=== PATIENT | female | born 1985 | race Two or more races ===

== ENCOUNTER → 2017-02-05 | Outpatient (CLI) | payer BC ==
[2017-02-05 11:24] LABS: BASO % 0.5 % (0.0-1.0); EOS # 0.1 K/mm3 (0.0-0.50); EOS % 0.6 % (0.0-3.0); LARGE UNSTAINED CELL # 0.1 K/mm3 (0.0-0.4); LARGE UNSTAINED CELL % 1.3 % (0.0-4.0); LYMPH # 1.9 K/mm3 (1.5-4.5); LYMPH % 17.9 % (24.0-44.0); MEAN CORPUSCULAR HEMOGLOBIN 30.5 pg (27.0-33.0); MEAN CORPUSCULAR HGB CONC 32.8 g/dl (32.0-36.5); MEAN CORPUSCULAR VOLUME 92.9 fl (80.0-96.0); MONO # 0.5 K/mm3 (0.0-0.8); MONO % 5.4 % (0.0-5.0); NEUTROPHILS # 7.3 K/mm3 (1.8-7.7); NEUTROPHILS % 74.2 % (36.0-66.0); PLATELET COUNT, AUTOMATED 311 k/mm3 (150-450); RED CELL DISTRIBUTION WIDTH 12.2 % (11.5-14.5); WHITE BLOOD COUNT 9.9 K/mm3 (4.0-10.0)
[2017-02-05 12:14] LABS: HBsAg Prenatal NEGATIVE (NEGATIVE)
== END ==
LOC: M LAB 10:41
PROVIDERS: ATTEND Advanced Practice Midwife
DX: Z34.81 Encounter for supervision of other normal pregnancy, first trimester (principal)

== ENCOUNTER → 2017-05-07 | Outpatient (CLI) | payer BC ==
--- NOTE | 2017-05-07 12:13 | REP ---
OB ULTRASOUND: Real-time sonographic evaluation of the gravid uterus is performed utilizing transabdominal technique. There is a single living intrauterine gestation with an estimated gestational age 20 weeks 0 days based on LMP with EDC 09/24/2017. Today's measurements indicate appropriate growth. Biometry and Growth: BPD 49 mm = 20 weeks 6 days, 74th percentile HC 183 mm = 20 weeks 5 days, 71st percentile AC 158 mm = 21 weeks 0 days, 70th percentile FL 34 mm = 20 weeks 5 days, 67th percentile HC/AC ratio 1.16 within normal range. Estimated weight 379 grams, 77th percentile. SEEN/GROSSLY UNREMARKABLE Lateral ventricles Yes Posterior fossa Yes Upper lip Yes Four-chamber heart Yes LVOT No RVOT No Stomach Yes Cord insertion Yes Three vessel cord Yes Kidneys Yes Bladder Yes Spine Yes Cervical length: Closed and measures 3.1 cm in length. heart rate: 162 beats per minute. position: Vertex. Placenta: Posterior and grade 0 with no previa or abruption. Amniotic fluid: Within normal limits. Signed by Jose Diez MD 05/07/2017 12:54 P
== END ==
LOC: M RAD 10:19
PROVIDERS: ATTEND Specialist
DX: Z34.82 Encounter for supervision of other normal pregnancy, second trimester (principal)

== ENCOUNTER → 2017-06-18 | Outpatient (CLI) | payer BC ==
[2017-06-18 13:30] LABS: MEAN CORPUSCULAR HEMOGLOBIN 30.7 pg (27.0-33.0); MEAN CORPUSCULAR HGB CONC 32.8 g/dl (32.0-36.5); MEAN CORPUSCULAR VOLUME 93.4 fl (80.0-96.0); RED CELL DISTRIBUTION WIDTH 12.8 % (11.5-14.5); WHITE BLOOD COUNT 11.8 10^3/uL (4.0-10.0)
== END ==
LOC: M LAB 11:39
PROVIDERS: ATTEND Obstetrics & Gynecology
DX: Z34.82 Encounter for supervision of other normal pregnancy, second trimester (principal)

== ENCOUNTER → 2017-07-02 | Outpatient (CLI) | payer BC ==
--- NOTE | 2017-07-02 09:29 | REP ---
Obstetric sonography: History: Supervision of for anatomy. Findings: Scanning through the gravid uterus demonstrates a viable single intrauterine gestation in a cephalic lie. motion is observed and heart rate is recorded at 163 beats per minute. A posterior grade 0 placenta is seen without evidence of previa or abruption. Amniotic fluid is subjectively normal. Closed cervical length is 4.3 cm, viewed transabdominally. No extrauterine abnormalities observed. There has been greater than expected interval growth. No anomaly is seen. The following anatomic structures are identified and felt to be sonographically unremarkable: cranium, choroid plexus, cavum, cerebellum and posterior fossa, face and profile, lungs, four-chamber heart with left and right ventricular outflow tract views, diaphragm, left-sided stomach, abdominal wall cord insertion, three-vessel umbilical cord, kidneys and bladder, spine, upper and lower extremities. Biometry chart: BPD 7.6 cm = 30 weeks 3 days Head circumference 27.9 cm = 30 weeks 4 days Abdominal circumference 26.1 cm = 30 weeks 2 days Femur length 5.6 cm = 29 weeks 3 days Humeral length 5.0 cm = 29 weeks 2 days Cerebellar diameter 3.2 cm = 27 weeks 4 days HC/AC ratio normal 1.07. Cephalic index normal 0.76. Estimated weight 1500 grams, 3 pounds 4 ounces, 95th percentile for 28 weeks 4 days. JAN normal 18.8 cm. Impression: Viable single intrauterine gestation at 29 weeks 4 days by today's composite sonographic criteria. Expected gestational age estimate based on prior sonography is 28 weeks 6 days. JALIL by prior sonography September 18, 2017. anatomic survey is felt to be complete. Signed by Terrence Sim MD 07/02/2017 01:17 P
== END ==
LOC: M RAD 07:45
PROVIDERS: ATTEND Obstetrics & Gynecology
DX: Z34.80 Encounter for supervision of other normal pregnancy, unspecified trimester (principal)

== ENCOUNTER 2017-09-04 12:20 | Outpatient (CLI) | payer BC ==
[~2017-09-04] VITALS: Ht 165.1 cm; Wt 90.6 kg
[2017-09-04] VITALS (9 sets, daily range): BP systolic 116–139; BP diastolic 76–92
[2017-09-04 13:13] LABS: MEAN CORPUSCULAR HEMOGLOBIN 28.3 pg (27.0-33.0); MEAN CORPUSCULAR HGB CONC 31.9 g/dl (32.0-36.5); MEAN CORPUSCULAR VOLUME 88.8 fl (80.0-96.0); PLATELET COUNT, AUTOMATED 274 10^3/uL (150-450); RED CELL DISTRIBUTION WIDTH 13.2 % (11.5-14.5); WHITE BLOOD COUNT 10.2 10^3/uL (4.0-10.0)
[2017-09-04 13:35] LABS: ALT/SGPT 16 U/L (12-78); AST/SGOT 23 U/L (7-37); BILIRUBIN,TOTAL 0.3 MG/DL (0.2-1.0); CREATININE FOR GFR 0.56 MG/DL (0.55-1.02); GLOMERULAR FILTRATION RATE > 60.0 (>60); URIC ACID 4.3 MG/DL (2.6-6.0)
== END 2017-09-04 16:30 | disposition home or self-care (01) ==
LOC: M LDO 12:20
PROVIDERS: ATTEND Advanced Practice Midwife
DX: O26.893 Other specified pregnancy related conditions, third trimester (principal); O13.3 Gestational [pregnancy-induced] hypertension without significant proteinuria, third trimester; Z3A.37 37 weeks gestation of pregnancy

== ENCOUNTER 2017-09-07 10:57 | Inpatient (IN) | payer BC ==
[~2017-09-07] VITALS: Ht 165.1 cm; Wt 86.8 kg
[2017-09-07] VITALS (11 sets, daily range): BP systolic 117–143; BP diastolic 66–93
[2017-09-07] MEDS ORDERED: PRENTAB9 PO (11:13)
[2017-09-07] MEDS: miSOPROStol 50 MCG 1/2 TAB (S0191) PO SCH ×3 (12:25→22:17)
[2017-09-07 12:30] LABS: MEAN CORPUSCULAR HEMOGLOBIN 27.4 pg (27.0-33.0); MEAN CORPUSCULAR HGB CONC 31.6 g/dl (32.0-36.5); MEAN CORPUSCULAR VOLUME 86.8 fl (80.0-96.0); PLATELET COUNT, AUTOMATED 278 10^3/uL (150-450); RED CELL DISTRIBUTION WIDTH 13.2 % (11.5-14.5); WHITE BLOOD COUNT 11.4 10^3/uL (4.0-10.0)
[2017-09-07 12:56] LABS: ALT/SGPT 15 U/L (12-78); AST/SGOT 25 U/L (7-37); BILIRUBIN,TOTAL 0.4 MG/DL (0.2-1.0); CREATININE FOR GFR 0.57 MG/DL (0.55-1.02); GLOMERULAR FILTRATION RATE > 60.0 (>60); URIC ACID 4.9 MG/DL (2.6-6.0)
[2017-09-07] MEDS ORDERED: LR 1,000 ML IV ONE (13:30)
[2017-09-07] MEDS: LR 1,000 ML IV SCH ×2 (15:30→23:59)
[2017-09-07] MEDS ORDERED: BUTORPHANOL 2 MG/ML INJ (J0595) IV ONE (23:15)
[2017-09-07] MEDS: PROMETHAZINE INJ 25 MG/ML VIAL (J2550) IV PRN (23:49)
[2017-09-08] VITALS (42 sets, daily range): BP systolic 102–144; BP diastolic 56–97
[2017-09-08] MEDS: miSOPROStol 50 MCG 1/2 TAB (S0191) PO SCH (02:13)
[2017-09-08] MEDS ORDERED: OXYTOCIN DRIP 30 UNITS in APPROPRIATE DILUENT 1 EA IV SCH (06:00)
[2017-09-08] MEDS: LR 1,000 ML IV SCH ×2 (07:02→14:58)
--- NOTE | 2017-09-08 08:24 | HPE ---
DATE OF ADMISSION: 09/07/2017 REASON FOR ADMISSION: Induction of labor. HISTORY OF THE PRESENT ILLNESS: Mrs. Wheat is a 32-year-old 1 who presents at 37 weeks 5 days estimated gestational age by last menstrual period, confirmed by a first trimester ultrasound for induction of labor for gestational hypertension. Mrs. Wheat was first evaluated for preeclampsia on 09/04/2017 when she presented with elevated blood pressures. She had labs drawn, which were unremarkable and re-presented 2 days later once again with elevated blood pressures 152/92. She was then directed to labor and delivery for an induction of labor. Her course otherwise has been unremarkable. She initiated care in her first trimester and has been appropriate throughout. PAST MEDICAL HISTORY: Anxiety. PAST SURGICAL HISTORY: None. PAST OBSTETRICAL HISTORY: She is 1. MEDICATIONS: Include vitamins. ALLERGIES: She has no known drug allergies. SOCIAL HISTORY: She lives with her . She denies any alcohol, tobacco or drug use during her . PHYSICAL EXAMINATION: Blood pressure 143/93, and she is afebrile. She has a category 1 heart rate tracing with irregular contractions on tocometer. General appearance is well appearing. No acute distress. Her lungs are clear to auscultation bilaterally. Cardiovascular: Heart regular rate and rhythm. Her abdomen is gravid. Estimated weight 3800 grams. Cervical Exam: Cervix is long, closed and high. LABORATORY: labs - blood type is A+, antibody screen is negative, Rubella is immune, RPR is nonreactive, hepatitis surface antigen is negative. HIV is negative. Hepatitis C is nonreactive. Chlamydia and gonorrhea screen was negative. She had a normal 1-hour Glucola. Her GBS status is unknown. ASSESSMENT: 1. Mrs. Wheat is a 32-year-old 1 at 37 weeks 5 days estimated gestational age, here for induction of labor for gestational hypertension, currently stable. 2. Reassuring status. PLAN: 1. Admit to labor and delivery. CBC, RPR, type and screen, preeclamptic panel, urine toxicology screen. 2. The patient has been thoroughly counseled in regards to her diagnosis. I discussed the medications as well as procedures performed in labor and delivery. She has also been consented for emergency surgery, blood products and anesthesia and desires to proceed with admission. 3. Will initiate her induction with 50 mcg of oral misoprostol.
[2017-09-08] MEDS: BUTORPHANOL 2 MG/ML INJ (J0595) IV PRN ×2 (15:40→21:30)
[2017-09-08] MEDS: PROMETHAZINE INJ 25 MG/ML VIAL (J2550) IV PRN ×2 (15:40→21:30)
[2017-09-09] VITALS (21 sets, daily range): BP systolic 102–134; BP diastolic 57–85
[2017-09-09] MEDS: PROMETHAZINE INJ 25 MG/ML VIAL (J2550) IV PRN (03:30)
[2017-09-09] MEDS: BUTORPHANOL 2 MG/ML INJ (J0595) IV PRN (03:30)
[2017-09-09] MEDS ORDERED: PENICILLIN G POTASSIUM IV 5 MU in D5W MINI-BAG PLUS 100 ML IV STA (06:58)
[2017-09-09 09:52] LABS: MEAN CORPUSCULAR HEMOGLOBIN 28.2 pg (27.0-33.0); MEAN CORPUSCULAR HGB CONC 31.9 g/dl (32.0-36.5); MEAN CORPUSCULAR VOLUME 88.4 fl (80.0-96.0); PLATELET COUNT, AUTOMATED 231 10^3/uL (150-450); RED CELL DISTRIBUTION WIDTH 13.4 % (11.5-14.5); WHITE BLOOD COUNT 12.9 10^3/uL (4.0-10.0)
[2017-09-09] MEDS ORDERED: PENICILLIN G POTASSIUM IV 2.5 MU in APPROPRIATE DILUENT 1 EA IV SCH (11:00)
[2017-09-09] MEDS ORDERED: BICITRA 30ML SOLN UDC PO ONE (15:00)
[2017-09-09] MEDS ORDERED: OXYTOCIN INJ 10 UNITS/ML VIAL (J2590) As Ordered ONE (15:04)
[2017-09-09] MEDS ORDERED: MORPHINE PRES-FREE INJ 10 MG/10 ML VIAL (J2274) As Ordered ONE (15:06)
[2017-09-09] MEDS ORDERED: NALOXONE INJ 0.4 MG/1 ML VIAL (J2310) IV PRN ×2 (17:24)
[2017-09-09] MEDS ORDERED: METOCLOPRAMIDE INJ 10MG/2ML VIAL (J2765) IV PRN (17:24)
[2017-09-09] MEDS ORDERED: NALBUPHINE HCL 10 MG/ML AMP (J2300) IV PRN ×2 (17:24→19:00)
[2017-09-09 18:02] LABS: CORD GAS ABE V -1.3; CORD GAS HCO3 V 25.4 MEQ/L; CORD GAS O2 SAT V 36.6 %; CORD GAS PCO2 V 49.2 mmHg; CORD GAS PH V 7.33 UNITS; CORD GAS PO2 V 16.6 mmHg; CORD GAS SBC V 21.6 MEQ/L; CORD GAS TCO2 V 26.9 MEQ/L
[2017-09-09 18:04] LABS: CORD GAS ABE A -7.1; CORD GAS HCO3 A 21.2 MEQ/L; CORD GAS O2 SAT A 19.5 %; CORD GAS PCO2 A 52.8 mmHg; CORD GAS PH A 7.222 UNITS; CORD GAS PO2 A 13.2 mmHg; CORD GAS SBC A 16.9 MEQ/L; CORD GAS TCO2 A 22.8 MEQ/L
[2017-09-09] MEDS ORDERED: OXYTOCIN 30 UNITS IN 0.9% NaCl 500ML IV BAG (J2590) As Ordered ONE (18:34)
[2017-09-09] MEDS ORDERED: LR 1,000 ML IV SCH (18:40)
[2017-09-09] MEDS ORDERED: PERCOCET 5MG/325MG TAB PO PRN (18:45)
[2017-09-09] MEDS ORDERED: CARBOPROST TROMETHAMINE 250 MCG/ML AMP IM ONE (18:45)
[2017-09-09] MEDS ORDERED: RHOGAM 300 MCG (1500 IU) INJ (J2790) IM SCH (18:45)
[2017-09-09] MEDS ORDERED: ONDANSETRON 4MG/2ML VIAL (J2405) IV PRN ×2 (18:45→19:00)
[2017-09-09] MEDS ORDERED: miSOPROStol 200 MCG TAB (S0191) PR ONE (18:45)
[2017-09-09] MEDS ORDERED: OXYTOCIN DRIP 30 UNITS in APPROPRIATE DILUENT 1 EA IV ONE (18:45)
[2017-09-09] MEDS ORDERED: MOM 30ML SUSPENSION UDC PO PRN (18:45)
[2017-09-09] MEDS ORDERED: MEASLES,MUMPS,RUBELLA VACCINE INJ (MMR-II) (90707) SC SCH (18:45)
[2017-09-09] MEDS ORDERED: KETOROLAC 30 MG/ML VIAL (J1885) IV PRN (19:00)
[2017-09-09] MEDS ORDERED: fentaNYL 100 MCG/2 ML INJECTION (J3010) IV PRN (19:00)
[2017-09-09] MEDS: DOCUSATE SODIUM 100 MG CAP PO SCH (21:00)
[2017-09-09] MEDS ORDERED: LOPERAMIDE 2 MG CAP PO ONE (23:45)
[2017-09-09] MEDS ORDERED: LOPERAMIDE 2 MG CAP PO PRN (23:45)
[2017-09-10] MEDS: KETOROLAC 30 MG/ML VIAL (J1885) IV SCH ×3 (01:23→13:23)
[2017-09-10 01:55] VITALS: BP 109/65
[2017-09-10 06:03] VITALS: BP 117/61
--- NOTE | 2017-09-10 06:31 | RO ---
DATE OF PROCEDURE: 09/09/2017 PREPROCEDURE DIAGNOSES: 1. Arrest of dilation. 2. Gestational hypertension. POSTPROCEDURE DIAGNOSES: 1. Arrest of dilation. 2. Gestational hypertension. PROCEDURE: Primary lower transverse section. SURGEON: Dr. Malathi Dewey [employer] TERRITORY MANAGER: Paty Dewitt MD. ANESTHESIA: Spinal. ESTIMATED BLOOD LOSS: 500 mL. INTRAVENOUS FLUIDS: 1700 mL of lactated ringer solution. PREOPERATIVE ANTIBIOTICS: 2 grams of Ancef. URINE OUTPUT: 575 mL. OPERATIVE FINDINGS: Live born male , 9 and 9, weight 3750 grams or 8 pounds 4 ounces. SPECIMENS: Cord blood 7.22, 7.33 with base excess of -7.1 and -1.3. DESCRIPTION OF OPERATION: After informed consent was obtained and written content was reviewed, the patient was brought to the operating room where spinal anesthesia was placed. She was then placed in lithotomy position and was prepped and draped in a normal sterile fashion. A Shepherd catheter was placed and set to gravity. A time out in the operating room was then performed identifying the patient, the procedure to be performed, as well as drug allergies. Anesthesia was tested and deemed to be adequate. A Pfannenstiel skin incision was then made and carried down to the underlying rectus fascia. The fascia was scored and this incision was extended bilaterally. The fascia was then dissected off the underlying rectus muscles, both superiorly and inferiorly. The rectus muscles were in the midline. The peritoneum was then entered. The vesicouterine peritoneum was then identified. It was tented and excised to create a bladder flap. The bladder blade was then placed to retract back the bladder. A curvilinear incision was then made in the lower uterine segment. The head was brought to the level of the incision with the aide a Kiwi vacuum. head was delivered along with anterior and posterior shoulders and corpus. The cord was clamped times two. The infant was taken over to the warmer with a good cry. Cord blood and cord gas was obtained. The placenta was then drained and delivered grossly intact. The uterus was then exteriorized and cleared of all clots and debris. The uterus was then closed in two layers using #0 Vicryl in a running locking fashion followed by a second layer of imbrication in a running non-locking fashion. The abdomen was then suctioned. The uterus was returned into the patient's abdomen and was reinspected and noted to be hemostatic. The anterior peritoneum was then reapproximated with #3-0 Vicryl. Rectus muscles were reapproximated with #3-0 Vicryl. The fascia was then closed with #0 Vicryl in a running nonlocking fashion. The subcutaneous tissue was then irrigated and suctioned. The subcutaneous tissue was then reapproximated with #3-0 Vicryl. Several subdermal stitches were placed with #3-0 Vicryl and the skin was closed with #4-0 Monocryl in a subcuticular fashion. Incision was then clean and dry. Mastisol was applied above and below the incision. Steri-Strips were applied over the incision. The incision was then dressed. The patient was then taken to recovery in stable condition. Counts were correct. The couple decided to name their son
[2017-09-10 06:57] LABS: MEAN CORPUSCULAR HEMOGLOBIN 27.8 pg (27.0-33.0); MEAN CORPUSCULAR HGB CONC 32.1 g/dl (32.0-36.5); MEAN CORPUSCULAR VOLUME 86.7 fl (80.0-96.0); PLATELET COUNT, AUTOMATED 214 10^3/uL (150-450); RED CELL DISTRIBUTION WIDTH 13.7 % (11.5-14.5); WHITE BLOOD COUNT 13.3 10^3/uL (4.0-10.0)
[2017-09-10] MEDS ORDERED: SLF 3 ML SYR IV PRN (07:30)
[2017-09-10] MEDS: DOCUSATE SODIUM 100 MG CAP PO SCH ×2 (07:47→21:26)
[2017-09-10] MEDS ORDERED: IBUP1TAB7 PO (07:51)
[2017-09-10] MEDS ORDERED: COLA100C5 PO (07:52)
[2017-09-10] MEDS ORDERED: PERCOCET PO (07:54)
[2017-09-10] MEDS: PRENATAL VITAMINS CHEWABLE TABLET PO SCH (08:24)
[2017-09-10 10:00] VITALS: BP 116/62
[2017-09-10] MEDS: SLF 3 ML SYR IV SCH ×2 (13:24→22:00)
[2017-09-10 14:19] VITALS: BP 120/73
[2017-09-10 18:00] VITALS: BP 123/74
[2017-09-10] MEDS: IBUPROFEN 800 MG TAB PO SCH (21:26)
[2017-09-10 21:40] VITALS: BP 112/67
[2017-09-10] MEDS: PERCOCET 5MG/325MG TAB PO PRN (21:52)
[2017-09-11 02:01] VITALS: BP 121/66
[2017-09-11] MEDS: IBUPROFEN 800 MG TAB PO SCH ×2 (05:08→13:21)
[2017-09-11] MEDS: PERCOCET 5MG/325MG TAB PO PRN (05:08)
[2017-09-11] MEDS: SLF 3 ML SYR IV SCH (05:09)
[2017-09-11 06:02] VITALS: BP 125/67
[2017-09-11] MEDS: PRENATAL VITAMINS CHEWABLE TABLET PO SCH (07:33)
[2017-09-11] MEDS: DOCUSATE SODIUM 100 MG CAP PO SCH (07:33)
[2017-09-11 10:00] VITALS: BP 117/69
--- NOTE | 2017-09-12 08:06 | DSES ---
DATE OF ADMISSION: 09/07/2017 DATE OF DISCHARGE: 09/11/2017 A 32-year-old G1 female at 37-5/7 weeks gestation, admitted for labor induction due to persistent gestational hypertension. care had been normal until that point. Patient was admitted on 09/07/2017 for labor induction. Induction was initiated with misoprostol for cervical ripening. She made slow progress in labor. She was subsequently diagnosed with arrest of dilation. On 09/09/2017 she underwent primary low transverse section for an 8-point 4-ounce infant. There were no complications. Her postoperative course was unremarkable, and her blood pressures were stable. She had adequate return of bladder and bowel function. She seemed stable for discharge on postoperative day #2. ADMISSION DIAGNOSIS: 1. , 37+ weeks 2. Hypertension. DISCHARGE DIAGNOSIS: Delivered. PROCEDURE: Primary low transverse section. DISPOSITION: Patient will followup with Dr. Dewey in 2 weeks. Instructions were reviewed. DREW
== END 2017-09-11 16:40 | disposition home or self-care (01) | DRG 540 ==
LOC: M LDO 10:57 → M LDI 11:59 → M OBS 09-09 20:35
PROVIDERS: ADMIT Obstetrics & Gynecology; ATTEND Obstetrics & Gynecology
PROC: 3E0DXGC Introduction of Other Therapeutic Substance into Mouth and Pharynx, External Approach (ICD-10-PCS; 2017-09-07)
PROC: 10D00Z1 Extraction of Products of Conception, Low, Open Approach (ICD-10-PCS; principal; 2017-09-09 17:41)
DX: O13.4 Gestational [pregnancy-induced] hypertension without significant proteinuria, complicating childbirth (principal); O62.0 Primary inadequate contractions; Z37.0 Single live birth; Z3A.37 37 weeks gestation of pregnancy

== ENCOUNTER → 2018-02-10 | Outpatient (CLI) | payer BC ==
[2018-02-10 14:48] LABS: HEMATOCRIT 40.4 % (36.0-47.0); HEMOGLOBIN 13.1 g/dl (12.0-15.5); MEAN CORPUSCULAR HEMOGLOBIN 27.8 pg (27.0-33.0); MEAN CORPUSCULAR HGB CONC 32.4 g/dl (32.0-36.5); MEAN CORPUSCULAR VOLUME 85.8 fl (80.0-96.0); PLATELET COUNT, AUTOMATED 369 10^3/uL (150-450); RED BLOOD COUNT 4.71 10^6/uL (4.00-5.40); RED CELL DISTRIBUTION WIDTH 12.6 % (11.5-14.5); WHITE BLOOD COUNT 7.2 10^3/uL (4.0-10.0)
[2018-02-10 15:15] LABS: ALBUMIN 3.8 GM/DL (3.2-5.2); ALKALINE PHOSPHATASE 104 U/L (45-117); ALT/SGPT 38 U/L (12-78); ANION GAP 6 MEQ/L (8-16); AST/SGOT 15 U/L (7-37); BILIRUBIN,TOTAL 0.3 MG/DL (0.2-1.0); BLOOD UREA NITROGEN 14 MG/DL (7-18); CARBON DIOXIDE LEVEL 28 MEQ/L (21-32); CHLORIDE LEVEL 108 MEQ/L (98-107); CREATININE FOR GFR 0.62 MG/DL (0.55-1.30); GLOMERULAR FILTRATION RATE > 60.0 (>60); GLUCOSE, FASTING 98 MG/DL (70-100); MAGNESIUM LEVEL 2.2 MG/DL (1.8-2.4); SODIUM LEVEL 142 MEQ/L (136-145)
== END ==
LOC: M LAB 13:37
DX: M79.1 Myalgia (principal)
CPT/HCPCS: 83735

== ENCOUNTER → 2018-02-11 | Outpatient (REF) | payer BC ==
[2018-02-11 21:45] LABS: C REACTIVE PROTEIN QUANTITATIV 0.67 MG/DL (0.00-0.30)
[2018-02-11 21:45] LABS: RHEUMATOID FACTOR QUANT < 10.0 IU/ML (<15.0)
[2018-02-11 22:00] LABS: ERYTHROCYTE SEDIMENTATION RATE 35 mm/hr (0-20)
[2018-02-14 00:10] LABS: ANTINUCLEAR ANTIBODIES DIRECT Negative (Negative); Lyme Disease IgG/IgM Antibodie <0.91 ISR (0.00-0.90); Lyme Disease IgM Ab Quantitati <0.80 index (0.00-0.79)
== END ==
LOC: M LABDRWAD 20:44
DX: M25.50 Pain in unspecified joint (principal)
CPT/HCPCS: 86140

== ENCOUNTER → 2018-02-27 | Outpatient (REF) | payer BC ==
[2018-03-02 14:09] LABS: HPV LOW VOL RFLX Negative (Negative)
== END ==
LOC: M LAB REF 18:19
DX: Z01.419 Encounter for gynecological examination (general) (routine) without abnormal findings (principal); Z11.51 Encounter for screening for human papillomavirus (HPV)
CPT/HCPCS: G0123

== ENCOUNTER → 2019-03-31 | Outpatient (REF) | payer BC ==
[~2019-03-31] MED LIST: COLA100C5 PO; IBUP1TAB7 PO; PERCOCET PO; PRENTAB9 PO
== END ==
LOC: M SFHCADAM 09:42
PROVIDERS: ATTEND Family Medicine
DX: M25.50 Pain in unspecified joint (principal); F41.9 Anxiety disorder, unspecified

== ENCOUNTER → 2019-03-31 | Outpatient (CLI) | payer BC ==
[2019-03-31 12:42] LABS: C REACTIVE PROTEIN QUANTITATIV < 0.30 MG/DL (0.00-0.30); FREE T4 1.14 NG/DL (0.76-1.46); RHEUMATOID FACTOR QUANT < 10.0 IU/ML (<15.0)
[2019-04-02 00:06] LABS: ANTINUCLEAR ANTIBODIES DIRECT Negative (Negative); Lyme Disease IgG/IgM Antibodie <0.91 ISR (0.00-0.90); Lyme Disease IgM Ab Quantitati <0.80 index (0.00-0.79)
== END ==
LOC: M LAB 11:17
PROVIDERS: ATTEND Family Medicine
DX: M25.50 Pain in unspecified joint (principal); F41.9 Anxiety disorder, unspecified

== ENCOUNTER → 2019-06-18 | Outpatient (CLI) | payer BC | LOC: M LAB 10:14 | PROVIDERS: ATTEND Internal Medicine Gastroenterology | DX: R19.7 Diarrhea, unspecified (principal); Z53.9 Procedure and treatment not carried out, unspecified reason ==

== ENCOUNTER → 2019-06-23 | Outpatient (CLI) | payer BC ==
[2019-06-23 11:03] LABS: BASO # 0.1 10^3/uL (0.0-0.2); BASO % 0.8 % (0.0-1.0); EOS # 0.1 10^3/uL (0.0-0.5); EOS % 0.8 % (0.0-3.0); HEMATOCRIT 44.7 % (36.0-47.0); HEMOGLOBIN 14.1 g/dl (12.0-15.5); LYMPH # 1.6 10^3/uL (1.5-5.0); LYMPH % 21.7 % (24.0-44.0); MEAN CORPUSCULAR HGB CONC 31.5 g/dl (32.0-36.5); MONO # 0.3 10^3/uL (0.0-0.8); MONO % 3.7 % (0.0-5.0); NEUTROPHILS # 5.3 10^3/uL (1.5-8.5); NEUTROPHILS % 72.9 % (36.0-66.0); PLATELET COUNT, AUTOMATED 307 10^3/uL (150-450); RED BLOOD COUNT 4.86 10^6/uL (4.00-5.40); WHITE BLOOD COUNT 7.2 10^3/uL (4.0-10.0)
[2019-06-23 11:32] LABS: ALBUMIN 3.8 GM/DL (3.2-5.2); BILIRUBIN,DIRECT 0.1 MG/DL (0.0-0.2); BILIRUBIN,TOTAL 0.3 MG/DL (0.2-1.0); TOTAL PROTEIN 7.9 GM/DL (6.4-8.2)
[2019-06-25 00:07] LABS: TISSUE TRANSGLUTAMINASE IgA <2 U/mL (0-3); UNITSIGA FOR GLIADIN IGA 2 units (0-19); UNITSIGG FOR GLIADIN IGG 2 units (0-19)
[2019-06-26 08:13] LABS: IGASUB2 223.3 mg/dL (73.2-301.2); IGASUB3 47.2 mg/dL (13.4-97.9); IgA SERUM (part of Subclasses) 309 mg/dL (87-352)
[2019-06-29 08:06] LABS: CALPROTECTIN STOOL <16 ug/g (0-120); FATS NEUTRAL Normal (.); FATS TOTAL Normal (.); PANCREATIC ELASTASE STOOL 157 (>200)
== END ==
LOC: M LAB 10:04
PROVIDERS: ATTEND Internal Medicine Gastroenterology
DX: R19.7 Diarrhea, unspecified (principal)

== ENCOUNTER → 2019-09-03 | Outpatient (REF) | payer BC | LOC: M SFHCWAGY 13:32 | PROVIDERS: ATTEND Specialist | DX: Z12.4 Encounter for screening for malignant neoplasm of cervix (principal) | CPT/HCPCS: 87624; G0123 ==

== ENCOUNTER → 2019-09-15 | Outpatient (CLI) | payer BC ==
[~2019-09-15] MED LIST changes: +GASTROGRAFIN SOLUTION 30ML (Q9963) As Ordered ONE; +ISOVUE-370 76% 100ML VIAL (Q9967) As Ordered ONE
--- NOTE | 2019-09-15 11:07 | REP ---
Clinical: Abdominal pain and diarrhea. Technique: Axial contrast enhanced images of the abdomen and pelvis from the lung bases to the pubic symphysis using oral (per protocol) and 100 ml Isovue 370 intravenous contrast material. Arterial phase and delayed phase images of the abdomen obtained along with coronal and sagittal re-formations. Findings: Lung bases are clear. Visualized heart and pericardium normal. Mild fatty infiltration to the liver cannot be excluded. No focal hepatic lesion noted. Spleen, pancreas, gallbladder, bilateral adrenal glands and kidneys are normal in all phases of evaluation. The enteric system demonstrates moderate fecal stasis consistent with the given history of diarrhea. No obstruction or acute inflammatory process noted. Pelvis demonstrates normal bladder and age-appropriate uterus/adnexa. No ascites. No adenopathy. No free air. Bowel aorta without aneurysm or dissection. Musculoskeletal structures are intact. Impression: Moderate fecal stasis. Mild hepatic steatosis. No acute abdominopelvic pathology appreciated. Electronically Signed by Harry Salazar MD 09/15/2019 10:58 A
== END ==
LOC: M RAD 08:47
PROVIDERS: ATTEND Internal Medicine Gastroenterology
DX: R19.7 Diarrhea, unspecified (principal); K86.81 Exocrine pancreatic insufficiency; R10.2 Pelvic and perineal pain
CPT/HCPCS: 74177; Q9963; Q9967

== ENCOUNTER → 2019-09-22 | Outpatient (CLI) | payer BC ==
[~2019-09-22] MED LIST changes: -GASTROGRAFIN SOLUTION 30ML (Q9963) As Ordered ONE; -ISOVUE-370 76% 100ML VIAL (Q9967) As Ordered ONE
[2019-09-22 15:02] LABS: BLOOD UREA NITROGEN 12 MG/DL (7-18); CARBON DIOXIDE LEVEL 25 MEQ/L (21-32); CHLORIDE LEVEL 107 MEQ/L (98-107); CREATININE FOR GFR 0.83 MG/DL (0.55-1.30); GLOMERULAR FILTRATION RATE > 60.0 (>60); GLUCOSE, FASTING 99 MG/DL (70-100); POTASSIUM SERUM 4.1 MEQ/L (3.5-5.1); SODIUM LEVEL 140 MEQ/L (136-145)
[2019-09-22 15:03] LABS: CALCIUM LEVEL 8.8 MG/DL (8.5-10.1); MAGNESIUM LEVEL 2.1 MG/DL (1.8-2.4); PHOSPHORUS LEVEL 2.1 MG/DL (2.5-4.9)
[2019-09-22 15:30] LABS: TOTAL 25(OH) VITAMIN D 45.7 NG/ML (30.0-100.0)
[2019-09-26 00:06] LABS: ANTINUCLEAR ANTIBODIES DIRECT Negative (Negative); VITAMIN D 1,25 DIHYDROXY 70.3 pg/mL (19.9-79.3)
== END ==
LOC: M LAB 12:47
PROVIDERS: ATTEND Internal Medicine Gastroenterology
DX: K86.81 Exocrine pancreatic insufficiency (principal)

== ENCOUNTER 2019-10-27 06:29 | Day surgery (SDC) | payer BC ==
[~2019-10-27] VITALS: Ht 165.1 cm; Wt 71.2 kg
[~2019-10-27 06:29] MED LIST changes: +ACET-683 PO; +BUSP1TAB PO; +CREO3600 PO; +NS 1,000 ML IV ONE; +PREVTAB2 PO
[2019-10-27] MEDS ORDERED: propofoL 500 MG/50 ML VIAL As Ordered ONE (07:07)
[2019-10-27] MEDS ORDERED: LIDOCAINE 2% INJ 100 MG/5 ML SDV (FOR ANES.) As Ordered ONE ×2 (07:08→07:13)
[2019-10-27] MEDS ORDERED: propofoL 200 MG/20 ML VIAL As Ordered ONE (07:13)
--- NOTE | 2019-10-27 08:12 | ROOR ---
Patient Name: Carleen Wheat Procedure Date: 10/27/2019 7:38 AM Date of : 1985 Age: 34 Room: [facility] Gender: Female Note Status: Finalized Procedure: Colonoscopy Indications: Chronic diarrhea Providers: Celso Green MD Referring MD: Fiorella RUBIO DO Requesting Provider: Medicines: Monitored Anesthesia Care Complications: No immediate complications. Procedure: Pre-Anesthesia Assessment: - Prior to the procedure, a History and Physical was performed, and patient medications and allergies were reviewed. The patient is competent. The risks and benefits of the procedure and the sedation options and risks were discussed with the patient. All questions were answered and informed consent was obtained. Patient identification and proposed procedure were verified by the physician, the nurse and the anesthesiologist in the procedure room. Mental Status Examination: alert and oriented. Airway Examination: normal oropharyngeal airway and neck mobility. Respiratory Examination: clear to auscultation. CV Examination: normal. Prophylactic Antibiotics: The patient does not require prophylactic antibiotics. Prior Anticoagulants: The patient has taken no previous anticoagulant or antiplatelet agents. ASA Grade Assessment: II - A patient with mild systemic disease. After reviewing the risks and benefits, the patient was deemed in satisfactory condition to undergo the procedure. The anesthesia plan was to use monitored anesthesia care (MAC). Immediately prior to administration of medications, the patient was re-assessed for adequacy to receive sedatives. The heart rate, respiratory rate, oxygen saturations, blood pressure, adequacy of pulmonary ventilation, and response to care were monitored throughout the procedure. The physical status of the patient was re-assessed after the procedure. The Colonoscope was introduced through the anus and advanced to the terminal ileum, with identification of the appendiceal orifice and IC valve. The colonoscopy was performed without difficulty. The patient tolerated the procedure well. The quality of the bowel preparation was good. The terminal ileum, ileocecal valve, appendiceal orifice, and rectum were photographed. Scope insertion time was 2 minutes. Scope withdrawal time was 9 minutes. The total duration of the procedure was 11 minutes. Findings: The perianal and digital rectal examinations were normal. The terminal ileum appeared normal. Normal mucosa was found in the entire colon. Biopsies for histology were taken with a cold forceps from the right colon, left colon, transverse colon and rectosigmoid colon for evaluation of microscopic colitis. Verification of patient identification for the specimen was done by the physician and nurse using the patient's name, date and medical record number. Estimated blood loss was minimal. Non-bleeding external and internal hemorrhoids were found during retroflexion. The hemorrhoids were small. Impression: - The examined portion of the ileum was normal. - Normal mucosa in the entire examined colon. Biopsied. - Non-bleeding external and internal hemorrhoids. Recommendation: - Patient has a contact number available for emergencies. The signs and symptoms of potential delayed complications were discussed with the patient. Return to normal activities tomorrow. Written discharge instructions were provided to the patient. - Resume previous diet. - Continue present medications. - Await pathology results. - Use Bentyl (dicyclomine) 20 mg PO BID 30 min AC. - Use Metamucil capsules, 1 capsule PO BID. - Telephone GI clinic for pathology results in 2 weeks. - Return to primary care physician. Celso Green MD Celso Green MD 10/27/2019 8:12:06 AM Electronically signed by Celso Green MD Number of Addenda: 0 Note Initiated On: 10/27/2019 7:38 AM Estimated Blood Loss: Estimated blood loss was minimal.
[2019-10-27 08:25] VITALS: BP 115/73
== END 2019-10-27 08:35 | disposition home or self-care (01) ==
LOC: M OPP 06:29
PROVIDERS: ATTEND Internal Medicine Gastroenterology
DX: K52.9 Noninfective gastroenteritis and colitis, unspecified (principal); K64.8 Other hemorrhoids; F41.9 Anxiety disorder, unspecified; G43.909 Migraine, unspecified, not intractable, without status migrainosus; R06.09 Other forms of dyspnea; Z86.79 Personal history of other diseases of the circulatory system; K21.9 Gastro-esophageal reflux disease without esophagitis; Z79.3 Long term (current) use of hormonal contraceptives; Z79.899 Other long term (current) drug therapy

== ENCOUNTER → 2020-08-09 | Outpatient (CLI) | payer BC ==
[~2020-08-09] MED LIST changes: -NS 1,000 ML IV ONE
[2020-08-09 18:38] LABS: ALT/SGPT 16 U/L (12-78); BILIRUBIN,TOTAL 0.4 MG/DL (0.2-1.0); BLOOD UREA NITROGEN 9 MG/DL (7-18); CALCIUM LEVEL 9.2 MG/DL (8.5-10.1); CARBON DIOXIDE LEVEL 27 MEQ/L (21-32); CHLORIDE LEVEL 104 MEQ/L (98-107); CREATININE FOR GFR 0.81 MG/DL (0.55-1.30); FREE T4 1.29 NG/DL (0.76-1.46); GLOMERULAR FILTRATION RATE > 60.0 (>60); GLUCOSE, FASTING 116 MG/DL (70-100); POTASSIUM SERUM 3.8 MEQ/L (3.5-5.1); SODIUM LEVEL 139 MEQ/L (136-145); TOTAL PROTEIN 7.8 GM/DL (6.4-8.2)
== END ==
LOC: M LAB 16:01
PROVIDERS: ATTEND Family Medicine
DX: E04.9 Nontoxic goiter, unspecified (principal); F41.9 Anxiety disorder, unspecified

== ENCOUNTER → 2020-08-12 | Outpatient (CLI) | payer BC ==
--- NOTE | 2020-08-14 07:41 | REP ---
INDICATION: THYROID ENLARGEMENT COMPARISON: None. TECHNIQUE: Diez scale and color evaluation of the thyroid gland using the linear high frequency transducer. FINDINGS: The thyroid gland is normal in contour, shape, and size. Right thyroid lobe measures 5.0 x 1.9 x 1.6 cm. 4 x 4 x 4 mm and 3 x 2 x 3 mm hypoechoic nonspecific midpole nodules are identified. 8 x 4 x 7 mm complex lower pole nodule identified. Isthmus measures 1.9 mm in width. Left thyroid lobe measures 3.6 x 1.5 x 1.2 cm. 3 x 1 x 4 mm hypoechoic nonspecific upper pole nodule identified. IMPRESSION: Few bilateral nonspecific nodular lesions all measuring less than 1.5 cm in diameter and no greater than TI-RADS 3 scoring suggesting annual follow-up. <Electronically signed by Harry Salazar > 08/14/20 [id number]
== END ==
LOC: M RAD 13:04
PROVIDERS: ATTEND Family Medicine
DX: E04.9 Nontoxic goiter, unspecified (principal)

== ENCOUNTER → 2020-10-18 | Outpatient (REF) | payer BC | LOC: M SFHCWAGY 09:45 | PROVIDERS: ATTEND Specialist | DX: Z01.419 Encounter for gynecological examination (general) (routine) without abnormal findings (principal) ==

== ENCOUNTER → 2021-03-08 | Outpatient (CLI) | payer BC ==
[~2021-03-08] MED LIST changes: +GASTROGRAFIN SOLUTION 30ML (Q9963) As Ordered ONE; +ISOVUE-370 76% 100ML VIAL As Ordered ONE
--- NOTE | 2021-03-09 06:56 | REP ---
INDICATION: ABD PAIN. COMPARISON: 09/15/2019 TECHNIQUE: Axial contrast-enhanced images from the lung bases to the pubic symphysis using oral and 100 cc Isovue 370 intravenous contrast material. Coronal and sagittal reformations obtained. This CT examination was performed using the following dose reduction techniques: Automated exposure control, adjustment of mA and/or kv according to the patient's size, and the use of iterative reconstruction technique. FINDINGS: Lung bases are clear. Visualized heart and pericardium normal. Liver, spleen, pancreas, gallbladder, bilateral adrenal glands and kidneys are normal. The enteric system including stomach, small, and large bowel appears normal. No evidence for obstruction or acute inflammatory process. Normal terminal ileum and appendix are identified in the right lower quadrant. Pelvis demonstrates normal bladder and age-appropriate uterus/adnexa No ascites. No free air. No intraperitoneal or retroperitoneal adenopathy. Abdominal aorta and vasculature appear normal. Musculoskeletal structures are intact and without acute osseous abnormality. IMPRESSION: No acute abdominopelvic pathology appreciated. <Electronically signed by Harry Salazar > 03/09/21 [id number]
== END ==
LOC: M RAD 10:51
PROVIDERS: ATTEND Family Medicine
DX: R10.9 Unspecified abdominal pain (principal)
CPT/HCPCS: 74177; Q9963; Q9967

== ENCOUNTER → 2022-02-21 | Outpatient (CLI) | payer BC ==
[~2022-02-21] MED LIST changes: -GASTROGRAFIN SOLUTION 30ML (Q9963) As Ordered ONE; -ISOVUE-370 76% 100ML VIAL As Ordered ONE
== END ==
LOC: M WHC 12:35
PROVIDERS: ATTEND Family Medicine
DX: E04.1 Nontoxic single thyroid nodule (principal)

== ENCOUNTER → 2022-03-06 | Outpatient (CLI) | payer BC ==
[2022-03-06 11:58] LABS: BASO # 0.1 10^3/uL (0.0-0.2); BASO % 1.1 % (0.0-1.0); EOS # 0.1 10^3/uL (0.0-0.5); EOS % 2.2 % (0.0-3.0); LYMPH # 1.9 10^3/uL (1.5-5.0); LYMPH % 29.1 % (24.0-44.0); MEAN CORPUSCULAR HEMOGLOBIN 29.5 pg (27.0-33.0); MEAN CORPUSCULAR HGB CONC 31.8 g/dl (32.0-36.5); MEAN CORPUSCULAR VOLUME 92.8 fl (80.0-96.0); MONO # 0.4 10^3/uL (0.0-0.8); NEUTROPHILS % 61.3 % (36.0-66.0); PLATELET COUNT, AUTOMATED 312 10^3/uL (150-450); RED BLOOD COUNT 4.74 10^6/uL (4.00-5.40); WHITE BLOOD COUNT 6.5 10^3/uL (4.0-10.0)
[2022-03-06 12:19] LABS: ERYTHROCYTE SEDIMENTATION RATE 4 mm/hr (0-20)
[2022-03-06 12:44] LABS: ALBUMIN 4.2 GM/DL (3.2-5.2); ALT/SGPT 20 U/L (12-78); BILIRUBIN,TOTAL 0.4 MG/DL (0.2-1.0); BLOOD UREA NITROGEN 11 MG/DL (7-18); CARBON DIOXIDE LEVEL 27 MEQ/L (21-32); CHLORIDE LEVEL 107 MEQ/L (98-107); CHOLESTEROL LEVEL 216 MG/DL (<200); CHOLESTEROL RISK RATIO 3.323 (<5); CREATININE FOR GFR 0.79 MG/DL (0.55-1.30); FREE T4 0.99 NG/DL (0.76-1.46); GLOMERULAR FILTRATION RATE > 60.0 (>60); GLUCOSE, FASTING 109 MG/DL (70-100); HDL CHOLESTEROL 65 MG/DL (>40); LDL CHOLESTEROL 131 MG/DL (<100); NON-HDL-C 151 MG/DL; POTASSIUM SERUM 3.6 MEQ/L (3.5-5.1); RHEUMATOID FACTOR QUANT < 10.0 IU/ML (<15.0); SODIUM LEVEL 141 MEQ/L (136-145); TOTAL PROTEIN 7.5 GM/DL (6.4-8.2); TRIGLYCERIDES LEVEL 102 MG/DL (<150)
[2022-03-07 13:09] LABS: ANTINUCLEAR ANTIBODIES DIRECT Negative (Negative)
== END ==
LOC: M LAB 11:22
PROVIDERS: ATTEND Family Medicine
DX: Z00.00 Encounter for general adult medical examination without abnormal findings (principal); M25.50 Pain in unspecified joint

== ENCOUNTER → 2023-06-14 | Outpatient (CLI) | payer BC | LOC: M RAD 14:49 | PROVIDERS: ATTEND Surgery | DX: M54.2 Cervicalgia (principal); M54.6 Pain in thoracic spine ==

== ENCOUNTER → 2023-06-14 | Outpatient (CLI) | payer BC ==
[2023-06-14 14:49] LABS: BASO # 0.1 10^3/uL (0.0-0.2); EOS # 0.1 10^3/uL (0.0-0.5); EOS % 1.6 % (0.0-3.0); HEMATOCRIT 44.6 % (36.0-47.0); HEMOGLOBIN 14.1 g/dl (12.0-15.5); LYMPH # 1.7 10^3/uL (1.5-5.0); LYMPH % 27.9 % (24.0-44.0); MEAN CORPUSCULAR HGB CONC 31.6 g/dl (32.0-36.5); MEAN CORPUSCULAR VOLUME 94.9 fl (80.0-96.0); MONO # 0.4 10^3/uL (0.0-0.8); MONO % 6.1 % (2.0-8.0); NEUTROPHILS # 3.9 10^3/uL (1.5-8.5); NEUTROPHILS % 63.2 % (36.0-66.0); PLATELET COUNT, AUTOMATED 333 10^3/uL (150-450); WHITE BLOOD COUNT 6.1 10^3/uL (4.0-10.0)
[2023-06-14 14:54] LABS: ERYTHROCYTE SEDIMENTATION RATE 18 mm/hr (0-20)
[2023-06-14 15:13] LABS: C REACTIVE PROTEIN QUANTITATIV < 0.40 MG/DL (<1.0)
[2023-06-14 15:14] LABS: CHOLESTEROL LEVEL 180 MG/DL (<200); CHOLESTEROL RISK RATIO 3.56 (<5); HDL CHOLESTEROL 50.5 MG/DL (>40); LDL CHOLESTEROL 101.5 MG/DL (<100); NON-HDL-C 129.5 MG/DL; TOTAL IRON BINDING CAPACITY 329 UG/DL (250-425); TRIGLYCERIDES LEVEL 140 MG/DL (<150)
[2023-06-14 15:15] LABS: IRON (FE) 70 UG/DL (50-170); PERCENT SATURATION 21.3 % (13.2-45.0)
[2023-06-14 15:16] LABS: FREE T4 1.22 NG/DL (0.89-1.76)
[2023-06-14 15:17] LABS: FERRITIN 14.6 NG/ML (7.3-270.7)
[2023-06-14 15:44] LABS: HEMOGLOBIN A1c 4.6 % (4.0-6.0)
== END ==
LOC: M RAD 14:07
PROVIDERS: ATTEND Physician Assistant
DX: E04.1 Nontoxic single thyroid nodule (principal); F32.1 Major depressive disorder, single episode, moderate; R53.83 Other fatigue; N92.1 Excessive and frequent menstruation with irregular cycle; E78.5 Hyperlipidemia, unspecified

== ENCOUNTER → 2024-01-29 | Outpatient (REF) | payer BC | LOC: M SFHCADAM 11:31 | PROVIDERS: ATTEND Family Medicine | DX: R53.83 Other fatigue (principal) ==

== ENCOUNTER → 2024-07-24 | Outpatient (CLI) | payer BC | LOC: M RAD 07:37 | PROVIDERS: ATTEND Nurse Practitioner Family | DX: K80.20 Calculus of gallbladder without cholecystitis without obstruction (principal); R10.11 Right upper quadrant pain ==

== ENCOUNTER → 2024-11-28 | Outpatient (REF) | payer BC | LOC: M LAB REF 11-27 12:42 | PROVIDERS: ATTEND Physician Assistant Medical | DX: K86.81 Exocrine pancreatic insufficiency (principal) ==

== ENCOUNTER → 2024-12-01 | Outpatient (REF) | payer BC ==
[2024-12-01 17:36] LABS: BASO # 0.1 10^3/uL (0.0-0.2); EOS # 0.2 10^3/uL (0.0-0.5); EOS % 2.1 % (0.0-3.0); HEMATOCRIT 44.1 % (36.0-47.0); HEMOGLOBIN 14.1 g/dl (12.0-15.5); LYMPH # 2.7 10^3/uL (1.5-5.0); LYMPH % 29.9 % (24.0-44.0); MEAN CORPUSCULAR HEMOGLOBIN 30.5 pg (27.0-33.0); MEAN CORPUSCULAR VOLUME 95.2 fl (80.0-96.0); MONO # 0.6 10^3/uL (0.0-0.8); MONO % 6.1 % (2.0-8.0); NEUTROPHILS # 5.5 10^3/uL (1.5-8.5); NEUTROPHILS % 60.6 % (36.0-66.0); PLATELET COUNT, AUTOMATED 344 10^3/uL (150-450); RED BLOOD COUNT 4.63 10^6/uL (4.00-5.40); WHITE BLOOD COUNT 9.1 10^3/uL (4.0-10.0)
[2024-12-01 18:00] LABS: ALBUMIN 3.8 G/DL (3.2-5.2); ALKALINE PHOSPHATASE 86 U/L (35-104); ALT/SGPT 16 U/L (7.0-40); AST/SGOT 13 U/L (<34); BILIRUBIN,TOTAL 0.4 MG/DL (0.3-1.2); BLOOD UREA NITROGEN 11 MG/DL (9-23); CALCIUM LEVEL 9.2 MG/DL (8.5-10.1); CARBON DIOXIDE LEVEL 29 MMOL/L (20-31); CHLORIDE LEVEL 103 MMOL/L (98-107); CHOLESTEROL LEVEL 215 MG/DL (<200); CHOLESTEROL RISK RATIO 4.14 (<5); CREATININE FOR GFR 0.63 MG/DL (0.55-1.30); GLOMERULAR FILTRATION RATE > 60.0 (>60); GLUCOSE, FASTING 99 MG/DL (60-100); HDL CHOLESTEROL 51.9 MG/DL (>40); LDL CHOLESTEROL 142.3 MG/DL (<100); NON-HDL-C 163.1 MG/DL; SODIUM LEVEL 137 MMOL/L (136-145); TOTAL PROTEIN 7.3 G/DL (5.7-8.2); TRIGLYCERIDES LEVEL 104 MG/DL (<150)
[2024-12-01 18:04] LABS: THYROID STIMULATING HORMONE 2.536 uIU/ML (0.55-4.78)
== END ==
LOC: M SFHCADAM 11:33
PROVIDERS: ATTEND Family Medicine
DX: Z00.00 Encounter for general adult medical examination without abnormal findings (principal)

== ENCOUNTER 2024-12-17 06:04 | Day surgery (SDC) | payer BC ==
[~2024-12-17] VITALS: Ht 165.1 cm; Wt 80.6 kg
[~2024-12-17 06:04] MED LIST changes: +ALBE200T13 PO; +CLAR10CA3 PO; +FLUO-290 PO; +FLUO-365 PO; +INUL1TAB PO; +THERTAB52 PO; +VITA100093 PO
[2024-12-17] MEDS: CelecoXIB 400 MG CAP PO ONE (07:12)
[2024-12-17] MEDS ORDERED: MIDAZOLAM INJ 2MG/2ML VIAL As Ordered ONE (07:16)
[2024-12-17] MEDS ORDERED: ONDANSETRON 4MG 2ML VIAL As Ordered ONE (07:16)
[2024-12-17] MEDS ORDERED: propofoL 200 MG/20 ML VIAL As Ordered ONE (07:16)
[2024-12-17] MEDS ORDERED: ROCURONIUM BROMIDE 50MG/5ML VIAL As Ordered ONE (07:16)
[2024-12-17] MEDS ORDERED: fentaNYL 100 MCG/2 ML INJECTION As Ordered ONE (07:16)
[2024-12-17] MEDS ORDERED: LIDOCAINE 2% 100MG/5ML SDV (FOR ANES.) As Ordered ONE (07:16)
[2024-12-17] MEDS: LR 1,000 ML IV SCH (07:16)
[2024-12-17] MEDS ORDERED: KETOROLAC 30 MG/ML 1ML VIAL As Ordered ONE (07:17)
[2024-12-17] MEDS ORDERED: INDOCYANINE GREEN 25MG VIAL (IC-GREEN) As Ordered ONE (07:19)
[2024-12-17] MEDS: ceFAZolin SOD 2 GM IV ONCE IV ONE (07:34)
[2024-12-17] MEDS: INDOCYANINE GREEN 25MG VIAL (IC-GREEN) IV ONE (07:34)
[2024-12-17] MEDS ORDERED: ACETAMINOPHEN 1000MG/100ML IV BAG As Ordered ONE (07:53)
[2024-12-17] MEDS ORDERED: SUGAMMADEX SODIUM 500 MG/5 ML VIAL (BRIDION) As Ordered ONE (08:14)
[2024-12-17] MEDS: LIDOCAINE 1% SDV 30ML VIAL As Ordered ONE (08:37)
[2024-12-17] MEDS ORDERED: dexmedeTOMIDine (4MCG/ML)200MCG/50ML BTL (PRECEDEX) As Ordered ONE (09:14)
[2024-12-17] MEDS ORDERED: ONDANSETRON 4MG 2ML VIAL IV PRN (09:20)
[2024-12-17] MEDS: KETOROLAC 30 MG/ML 1ML VIAL IV ONE (09:30)
[2024-12-17] MEDS: MORPHINE 2 MG/ML 1ML VIAL IV PRN (09:31)
[2024-12-17] MEDS ORDERED: METOCLOPRAMIDE INJ 10MG/2ML VIAL IV PRN (09:45)
[2024-12-17] MEDS: fentaNYL 100 MCG/2 ML INJECTION IV PRN (09:49)
[2024-12-17] MEDS: oxyCODONE 5MG TAB PO PRN (10:32)
[2024-12-17 11:29] VITALS: BP 123/62
[2024-12-17 13:10] VITALS: TEMP 98; O2SAT 100
== END 2024-12-17 13:12 | disposition home or self-care (01) ==
LOC: M SDC 06:04
PROVIDERS: ATTEND Surgery
DX: K80.10 Calculus of gallbladder with chronic cholecystitis without obstruction (principal); K66.0 Peritoneal adhesions (postprocedural) (postinfection); R16.0 Hepatomegaly, not elsewhere classified; Z79.899 Other long term (current) drug therapy
CPT/HCPCS: 47563; 64488; 81025; 88304; J0131; J0665; J0690; J1100; J1885; J2250; J2405; J3010; Q9968; S2900

== ENCOUNTER → 2025-04-20 | Outpatient (CLI) | payer BC | LOC: M WHC 08:59 | PROVIDERS: ATTEND Family Medicine | DX: N92.6 Irregular menstruation, unspecified (principal); R93.41 Abnormal radiologic findings on diagnostic imaging of renal pelvis, ureter, or bladder ==